=== PATIENT | female | born 1935 | race Caucasian/White ===

== ENCOUNTER 2020-11-26 10:14 | Day surgery (SDC) | payer OTHER ==
[~2020-11-26] VITALS: Ht 152.4 cm; Wt 72.6 kg
[2020-11-26] MEDS ORDERED: MIDAZOLAM 5 MG/5 ML VIAL ONE (12:17)
[2020-11-26] MEDS ORDERED: MIDAZOLAM 2 MG/2 ML VIAL IVP ONE (12:50)
== END 2020-11-26 13:25 | disposition home or self-care (01) ==
LOC: MDS 10:14 → MMU 10:15 → MDS 13:25
PROVIDERS: ATTEND Internal Medicine Gastroenterology
DX: K22.70 Barrett's esophagus without dysplasia (principal); K21.9 Gastro-esophageal reflux disease without esophagitis; K46.9 Unspecified abdominal hernia without obstruction or gangrene; I10 Essential (primary) hypertension; Z98.890 Other specified postprocedural states; Z79.82 Long term (current) use of aspirin; Z79.899 Other long term (current) drug therapy
CPT/HCPCS: 43235; J2250